=== PATIENT | female | born 1990 | race Caucasian/White ===

== ENCOUNTER 2022-11-17 16:14 | Emergency (ER) | payer SELFPAY ==
[2022-11-17 16:22] VITALS: BP 126/64; PULSE 67; RESP 16; TEMP 37.3; O2SAT 97; BMI 32.4
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
--- NOTE | 2022-11-17 16:47 | CRLHL7_ITS ---
For Patients: As a result of the Century Cures Act, medical imaging exams and procedure reports are released immediately into your electronic medical record. You may view this report before your referring provider. If you have questions, please contact your health care provider. INDICATION: Back pain. TECHNIQUE: Thoracic spine 3 views. COMPARISON: None. FINDINGS: Bones: Alignment is normal. No fractures or significant bone lesions. Joints: Disc spaces and facets are unremarkable. Soft tissues: Unremarkable. IMPRESSION: Unremarkable thoracic spine. Dictated by Otoniel Crump MD @ 11/17/2022 6:25:55 PM (Electronically Signed)
[2022-11-17] MEDS: ACETAMINOPHEN 500 MG TABLET 1000 MG PO (16:58)
[2022-11-17 18:47] VITALS: BP 139/88; PULSE 71; RESP 16; TEMP 36.8
== END 2022-11-17 18:48 | disposition home or self-care (01) ==
PROVIDERS: Emergency Provider Family Medicine
DX: M25.512 Pain in left shoulder (principal); M79.642 Pain in left hand; V53.5XXA Driver of pick-up truck or van injured in collision with car, pick-up truck or van in traffic accident, initial encounter
CPT/HCPCS: 72070; 73030; 99284; A9270